=== PATIENT | female | born 1995 | race Caucasian/White ===

== ENCOUNTER 2020-11-28 17:18 | Emergency (ER) | payer OTHER, SELFPAY ==
[2020-11-28 17:37] VITALS: BP 92/71; PULSE 83; RESP 18; TEMP 36.6; O2SAT 100
--- NOTE | 2020-11-28 17:57 | ED.DENTAL ---
HPI - Dental/Oral General Chief complaint: Dental/Oral Stated complaint: gum and dental pain Time Seen by Provider: 11/28/20 17:47 History of Present Illness HPI Narrative: Patient is a 25-year-old female who presents ER with dental pain lasting over 1 week. Right-sided both upper and lower jaw. Worse with eating and drinking. No facial swelling. No fevers or chills or sweats. No intraoral drainage. Has not seen a dentist. Review of Systems Constitutional: Constitutional: Denies chills and Denies fever(s) ENT: Denies nasal congestion and Denies sore throat Comments: Dental pain Respiratory: Respiratory: Denies cough and Denies dyspnea PMFSH Past Medical History Medical History (Updated 11/28/20 @ 18:00 by Scar De La Paz MD) Healthy female adult Surgical History Surgical History (Updated 11/28/20 @ 17:58 by Scar De La Paz MD) No history of previous surgery Exam Narrative: Exam Narrative: GENERAL: Well-appearing, well-nourished, and in no acute distress. HEAD: Normocephalic, atraumatic. ENT: Mucous membranes moist. Bleeding gums over teeth #4 and 5. Fractured tooth #32. No fluctuant abscess. CHEST: Clear to auscultation. No respiratory distress. HEART: Regular rate and rhythm. Normal peripheral pulses. NEURO: Alert and oriented x3. PSYCH: Normal mood and affect. Course Course Emergency Course: [place] for pain here. Discharge home with antibiotics. Recommend follow-up with a dentist and dental wax or fractured tooth. Vital Signs Vital signs: Vital Signs Temperature 97.9 F 11/28/20 17:37 Pulse Rate 83 11/28/20 17:37 Respiratory Rate 18 11/28/20 17:37 Blood Pressure 92/71 L 11/28/20 17:37 Pulse Oximetry 100 11/28/20 17:37 Temperature 97.9 F 11/28/20 17:37 Pulse Rate 83 11/28/20 17:37 Respiratory Rate 18 11/28/20 17:37 Blood Pressure 92/71 L 11/28/20 17:37 Pulse Oximetry 100 11/28/20 17:37 Discharge Plan Discharge Clinical Impression: Dental caries Patient Disposition: Home, Self-Care Condition: Stable Instructions: Toothache (ED) Additional Instructions: Return to the ER if you have chest pain or shortness of breath, you cannot keep down food or water, you have facial swelling, you have additional concerns. Prescriptions: New amoxicillin-pot clavulanate [Augmentin] 875-125 mg tablet 1 tablet PO Q12H Qty: 20 RF: 0 ibuprofen 600 mg tablet 600 mg PO TID Qty: 20 RF: 0 Follow-up/Referrals: Dental Referral Line [Outside] - 1 Week PHYSICIAN NOT ON STAFF,NONSTAFF [Primary Care Provider] - Stand Alone Forms: Work/School Release IP
[2020-11-28] MEDS: HYDROcodone/acetaminophen (*CRX) 5-325 MG TABLET 1 TAB PO (18:19)
--- NOTE | 2020-11-28 18:46 | ED.DENTAL ---
HPI - Dental/Oral General Chief complaint: Dental/Oral Stated complaint: gum and dental pain Time Seen by Provider: 11/28/20 17:47 Source: patient, family and RN notes reviewed Mode of arrival: ambulatory Limitations: no limitations History of Present Illness HPI Narrative: Patient is a 25-year-old female who presents to emergency department for evaluation of dental pain for the last several weeks with history of gross decay does not have a dentist is attempted [id number] medications with minimal improvement on arrival to emergency department is resting in the room does not appear uncomfortable or distressed. Related Data Home Medications Medication Instructions Recorded Confirmed No Home Medications 11/28/20 11/28/20 Allergies Allergy/AdvReac Type Severity Reaction Status Date / Time No Known Allergies Allergy Verified 11/28/20 18:20 Review of Systems Review of Systems: All systems reviewed & are unremarkable except as noted in HPI and below PMFSH Past Medical History Medical History Healthy female adult Surgical History Surgical History No history of previous surgery Exam Narrative: Exam Narrative: GENERAL: Well-appearing, well-nourished, and in no acute distress. HEAD: Normocephalic, atraumatic. EYES: PERRLA and EOMI. ENT: Nares clear, no rhinorrhea or epistaxis. Mucous membranes moist. Oropharynx without tonsillar hypertrophy exudate or other lesions. Gross dental decay no space-occupying lesions floor the mouth is soft. NECK: Supple. No adenopathy or masses. CHEST: Clear to auscultation. No respiratory distress. No wheezes rales or rhonchi HEART: Regular rate and rhythm. No murmur heard. EXTREMITIES: Normal range of motion. No edema. SKIN: Warm, dry, no rash. NEURO: No focal deficits. Alert and oriented x3. Cranial nerves II through XII grossly intact PSYCH: Normal mood and affect. Course Course Emergency Course: Patient in the room in no distress aware of case findings treatment plan and diagnosis agreeing to follow-up as instructed. Patient will be referred to dentistry Vital Signs Vital signs: Vital Signs Temperature 97.9 F 11/28/20 17:37 Pulse Rate 83 11/28/20 17:37 Respiratory Rate 18 11/28/20 17:37 Blood Pressure 92/71 L 11/28/20 17:37 Pulse Oximetry 100 11/28/20 17:37 Temperature 97.9 F 11/28/20 17:37 Pulse Rate 83 11/28/20 17:37 Respiratory Rate 18 11/28/20 17:37 Blood Pressure 92/71 L 11/28/20 17:37 Pulse Oximetry 100 11/28/20 17:37 MDM - Dental/Oral MDM Narrative Medical decision making narrative: Patients pain and complaint coupled with physical findings are consistent with dentalgia. There are no focal signs of space occupying lesions that are compromising to the airway. The floor of the mouth is soft with no signs of Trey Angina. Patient is without trismus or drooling and able to swallow secretions. Patient is felt appropriate for discharge home with dental follow up. Discharge Plan Discharge Clinical Impression: Dental caries Patient Disposition: Home, Self-Care Condition: Stable Instructions: Toothache (ED) Additional Instructions: Return to the ER if you have chest pain or shortness of breath, you cannot keep down food or water, you have facial swelling, you have additional concerns. Prescriptions: No Action No Home Medications RF: 0 Follow-up/Referrals: Dental Referral Line [Outside] - 1 Week PHYSICIAN NOT ON STAFF,NONSTAFF [Primary Care Provider] - Stand Alone Forms: Work/School Release IP
== END 2020-11-28 18:50 | disposition home or self-care (01) ==
PROVIDERS: Emergency Provider Emergency Medicine
DX: K02.9 Dental caries, unspecified (principal)
CPT/HCPCS: 99283; A9270

== ENCOUNTER 2021-03-04 12:44 | Emergency (ER) | payer OTHER, SELFPAY ==
[2021-03-04 12:52] VITALS: BP 100/69; PULSE 60; RESP 16; TEMP 36.4; O2SAT 100
--- NOTE | 2021-03-04 13:33 | ED.DENTAL ---
HPI - Dental/Oral General Chief complaint: Dental/Oral Stated complaint: mouth pain Time Seen by Provider: 03/04/21 13:34 Source: patient and RN notes reviewed Mode of arrival: ambulatory Limitations: no limitations History of Present Illness HPI Narrative: 26-year-old female presents to the [facility] with a right lower tooth pain. Has decayed and broken teeth. Symptoms x4 days. Has not seen a dentist in a long time. MD Complaint: tooth pain Teeth map: 1. Decayed/broken teeth. Swollen surrounding tissue with redness Related Data Allergies Allergy/AdvReac Type Severity Reaction Status Date / Time No Known Allergies Allergy Verified 03/04/21 13:08 Review of Systems Review of Systems: All systems reviewed & are unremarkable except as noted in HPI and below Constitutional: Constitutional: Reports no additional constitutional complaints, Denies chills and Denies fever(s) Eyes: Eyes: Reports no additional eye complaints ENT: Reports as per HPI Comments: Dental pain and swelling Cardiovascular: Cardiovascular: Reports no additional cardiovascular complaints Respiratory: Respiratory: Reports no additional respiratory complaints Musculoskeletal: Musculoskeletal: Reports no additional musculoskeletal complaints Integumentary/Breasts: Skin/Breast: Reports system reviewed and no additional complaints, except as docu Neurologic: Reports system reviewed and no additional complaints, except as documented Psychiatric: Psychiatric: Reports no additional psychiatric complaints Allergic/Immunologic: Allergic/Immunologic: Reports no additional allergic/immunologic complaints PMFSH Past Medical History Medical History Healthy female adult Surgical History Surgical History No history of previous surgery Social History Social History (Updated 03/05/21 @ 14:04 by Tessie Greene) Smoking status: Current every day smoker Gender identity (if verbalized by the patient): Female Comments At the time of my signature, I reviewed and agree with the nursing past medical, surgical, social, and family history. There is no relevant family history pertinent to the patient complaint. Exam Const: General: healthy appearing, no acute distress and alert Nutritional Appearance: well nourished and thin Orientation/consciousness: patient oriented x3 Limitations: no limitations HENMT: Head: normal to inspection Ears: hearing grossly normal bilaterally, external ears normal, TM's normal bilaterally and EAC's normal General nose exam: Normal external nose present Face and sinus: normal facial exam, no erythema and no edema Mouth: Yes lip normal Teeth and gingiva: abnormal tooth and associated gingiva, caries, gingiva abnormal edematous, with purulent discharge and tender and poor dentition Throat: posterior oropharynx normal Eyes: Pupils: Equal, round and reactive pupils present Neck: Neck: normal visual inspection, no lymphadenopathy and no meningeal signs Chest: Chest palpation & inspection: normal inspection of the chest Resp: Effort & Inspection: normal respiratory effort and no use of accessory muscles Auscultation: clear to auscultation bilaterally, no crackles, no rales, no rhonchi and no wheezes Cardio: Rate: regular rate Rhythm: regular rhythm Back/Spine/Pelvis: Back: no CVA tenderness Skin: General skin exam: normal color Rashes: no rashes Wounds: no wounds Neuro: General: patient oriented x3, moves all extremities, no meningeal signs and no focal motor deficits Speech: normal speech Gait exam (Neuro): Normal gait present Extrem: General: normal to inspection Psych: Appearance: grossly normal and well kempt Mental Status: mental status grossly normal Affect: normal affect Attitude: cooperative Thought content: Yes Normal thought content present Course Course Emergency Course: Discharge instructions revie
== END 2021-03-04 13:49 | disposition home or self-care (01) ==
PROVIDERS: Emergency Provider Nurse Practitioner
DX: K02.9 Dental caries, unspecified (principal); K04.7 Periapical abscess without sinus; S02.5XXA Fracture of tooth (traumatic), initial encounter for closed fracture; X58.XXXA Exposure to other specified factors, initial encounter
CPT/HCPCS: 99213; G0463